=== PATIENT | female | born 1930 | race Two or more races ===

== ENCOUNTER 2017-09-28 14:03 | Inpatient (IN) | payer MEDICARE, OTHER ==
[~2017-09-28] VITALS: Ht 165.1 cm; Wt 77.1 kg
--- NOTE | 2017-09-28 14:10 | NUR ---
Bibra 37 c/o more altered than usual and generalized weakness. SEEN BY MD FOR EVAL. SAFETY AND COMFORT MEASURES PROVIDED. WILL MONITOR.
[2017-09-28] MEDS ORDERED: OLAN5TAB3 PO (14:20)
[2017-09-28] MEDS ORDERED: OLAN15TA3 PO (14:20)
[2017-09-28] MEDS ORDERED: FOLI1TAB16 PO (14:20)
[2017-09-28] MEDS ORDERED: ROSU20TA PO (14:20)
[2017-09-28] MEDS ORDERED: ASPI-1152 PO (14:20)
[2017-09-28] MEDS ORDERED: ATEN25TA PO (14:20)
[2017-09-28] MEDS ORDERED: OXCA150T PO (14:20)
[2017-09-28] MEDS ORDERED: [UNRECOGNIZED DRUG - CODE] PO (14:20)
[2017-09-28] MEDS ORDERED: MIRT15TA7 PO (14:20)
[2017-09-28] MEDS ORDERED: AMLO2.5T PO (14:20)
[2017-09-28] MEDS ORDERED: TEMA7.5C12 PO (14:20)
--- NOTE | 2017-09-28 14:49 | NUR ---
PATIENT ASSIGNED TO 316-1 DX MORE ALTERED THAN USUAL
[2017-09-28 14:57] LABS: BASOPHILS # (AUTO) 0.1 /CMM (0.0-0.2); BASOPHILS % (AUTO) 0.9 % (0.0-2.0); EOSINOPHILS % (AUTO) 2.7 % (0.0-6.0); HEMATOCRIT 39 % (33-45); HEMOGLOBIN 12.9 g/dL (11.5-14.8); LYMPHOCYTES # (AUTO) 1.8 /CMM (0.8-4.8); LYMPHOCYTES % (AUTO) 28.1 % (20.0-44.0); MEAN CORPUSCULAR HEMOGLOBIN 30 PG (26.0-33.0); MEAN CORPUSCULAR HGB CONC 33 g/dl (31.0-36.0); MEAN CORPUSCULAR VOLUME 92 fL (82-100); MONOCYTES # (AUTO) 0.7 /CMM (0.1-1.30); MONOCYTES % (AUTO) 11.4 % (2.0-12.0); NEUTROPHILS # (AUTO) 3.5 /CMM (1.8-8.9); NEUTROPHILS % (AUTO) 56.9 % (43.0-81.0); PLATELET COUNT (AUTO) 280 /CMM (150-450); RDW COEFFICIENT OF VARIATION 13.4 (11.5-15.0); RED BLOOD CELL COUNT(AUTO) 4.24 MIL/uL (4.0-5.2); WHITE BLOOD COUNT (AUTO) 6.3 K/uL (4.3-11.0)
[2017-09-28 15:05] LABS: CALCIUM, SERUM 9.2 mg/dL (8.5-10.1); CARBON DIOXIDE 27 mmol/L (21-32); CHLORIDE 107 mmol/L (98-107); CREATININE 0.8 mg/dL (0.6-1.3); GLUCOSE 145 mg/dL (74-106); POTASSIUM 4.1 mmol/L (3.5-5.1); SODIUM SERUM 145 mmol/L (136-145); UREA NITROGEN, BLOOD 37 mg/dL (7-18)
[2017-09-28 15:11] LABS: ALANINE AMINOTRANSFERASE 20 U/L (12-78); ALBUMIN 2.6 g/dL (3.4-5.0); ALKALINE PHOSPHATASE 102 U/L (46-116); ASPARTATE AMINOTRANSFERASE 17 U/L (15-37); BILIRUBIN,DIRECT 0.1 mg/dL (0.0-0.2); BILIRUBIN,TOTAL 0.5 mg/dL (0.2-1.0); TOTAL PROTEIN, SERUM 6.8 g/dL (6.4-8.2)
[2017-09-28] MEDS ORDERED: IV NS 0.9% 1,000 ML BAG IV STA (15:13)
[2017-09-28] MEDS ORDERED: CT SWABBABLE VALVE TRANS SET 1 EA INFUS.SET MC ONE (15:23)
[2017-09-28] MEDS ORDERED: IOHEXOL-300 100 ML VIAL IV ONE (15:23)
[2017-09-28 15:53] LABS: APPEARANCE,URINE Clear (CLEAR); BILIRUBIN,URINE SMALL (NEGATIVE); BLOOD, URINE Trace-lysed Ery/uL (NEGATIVE); COLOR,URINE Yellow (YELLOW); KETONES,URINE Trace (NEGATIVE); LEUKOCYTE ESTERASE ,URINE Moderate (NEGATIVE); NITRITE, URINE Negative (NEGATIVE); PH,URINE 5.5 (5.0-8.0); PROTEIN,URINE Trace mg/dl (NEGATIVE); UGLUCOSE Negative (NEGATIVE); UROBILINOGEN,URINE 0.2 EU/dL (0.2)
[2017-09-28 16:02] LABS: BACTERIA,URINE Few /HPF (None Seen); SQUAMOUS EPITHELIAL CELL,UR Moderate /HPF (None Seen); WBC,URINE 80-100 /HPF (0-3)
--- NOTE | 2017-09-28 16:39 | NUR ---
CALLED [facility] FOR PANEL CALL AND LAUREN JOE WAS PAGED
--- NOTE | 2017-09-28 17:13 | NUR ---
REPORT GIVEN TO INDRA CLAROS.
--- NOTE | 2017-09-28 18:00 | NUR ---
DISPATCHER ELECTRIC POWER NOTES RECEIVED PATIENT FROM ER PATIENT CONFUSED, ANXIOUS COMBATIVE NOTED HITTING KICKING. PATIENTS BODY ASSESSED SKIN INTACT. PATIENT ORIENTED TO ROOM. CALL LIGHT WITHIN TEACH. BED IN LOW LOCKED POSITION. PERIPHERAL IV INTACT PATENT. WILL CONTINUE TO MONITOR.
--- NOTE | 2017-09-28 19:30 | NUR ---
RN NOTES: -RECEIVED AWAKE ON BED, A/OX1, WITH PERIODS OF CONFUSION, ON CLOSE WTACH, HIGH RISK FOR FALL, FALL,SAFETY AND ASPIRATION PRECAUTION OBSERVED, TO BE TRANSFERRED ON EDJASCENT ROOM TO THE NURSES STATION, AWAITING FOR BED AVAILABILITY,AWAITING FOR ADMISSION ORDERS PER MORNING SHIFT RN ENDORSEMENT.RH G#20 INTACT.TRYING TO GET OUT FROM BED, TALKING INCOHERENT WORDS,ON CLOSE VISUAL CHECK.
[2017-09-28 20:00] VITALS: BP 137/66
--- NOTE | 2017-09-28 20:21 | NUR ---
RN NOTES; KEPT ON CLOSE WATCH, TALKING LOUDLY AND SHOUTING, KEPT ON CLOSE WATCH,DAUGHTER-MY CALLED OVER THE PHONE SHE WILL BE COMING TOMORROW,UTILITY WORKER PRODUCTION DOUGLAS CAME IN AND CHECK THE PATIENT THEN HE ALSO LEFT AND WILL RETURN BACK TOMORROW, PER DOUGLAS HER MENTATION IS MUCH BETTER NOW SHE IS MORE ALERT AND ABLE TO TALK, STILL WITH PERIODS OF CONFUSION, PER CAREGIVER SHE LOOKS DEHYDRATED BEFORE SHE CAME IN [facility] AND NOT TALKING AT ALL, AFTER HYDRATION IN ER SHE FEELS BETTER.
[2017-09-28] MEDS ORDERED: MAGNESIUM HYDROXIDE 30 ML UDC PO PRN (21:30)
[2017-09-28] MEDS: MEROPENEM 500 MG in IV NS 0.9% 50 ML IV SCH (21:30)
[2017-09-28] MEDS ORDERED: Z GUARD REMEDY 2 OZ OINT TP PRN (21:30)
[2017-09-28] MEDS ORDERED: MAG HYDROX/AL HYDROX/SIMETH 30 ML UDC PO PRN (21:30)
[2017-09-28] MEDS ORDERED: ONDANSETRON HCL/PF 4 MG/2 ML VIAL IVP PRN (21:30)
[2017-09-28] MEDS ORDERED: ACETAMINOPHEN 325 MG TABLET PO PRN (21:30)
[2017-09-28] MEDS ORDERED: BISACODYL SUPP (10 MG) 10 MG/SUPP.RECT SUPP.RECT RC PRN (22:00)
[2017-09-28] MEDS ORDERED: MINERAL OIL 133 ML (PYXIS) 1 EA ENEMA RC ONE (22:00)
[2017-09-28] MEDS ORDERED: DOCUSATE CALCIUM (240 MG) 240 MG CAPSULE PO SCH (22:00)
[2017-09-28] MEDS ORDERED: TEMAZEPAM 7.5 MG CAPSULE PO SCH (22:00)
--- NOTE | 2017-09-28 22:00 | NUR ---
RN NOTES: DOCUSATE CALCIUM NOT AVAILABLE, PATIENT HAD A MEDIUM AMOUNT OF BOWEL MOVEMENT AT AROUND 2230, CLEAN AND CHANGE.
--- NOTE | 2017-09-28 22:00 | NUR ---
RN NOTES: PATIENT WAS TRANSFERRED TO ADJACENT ROOM TO THE NURSES STATION IN [facility],-311-2.
--- NOTE | 2017-09-28 22:00 | NUR ---
RN NOTES: DR. AGUILAR CAME AND GIVEN INSTRUCTION TO RN TO DO BLADDER SCAN AND NOTIFY HIM,PATIENT IS FOR GI , CARDIO AND NEURO CONSULT.
--- NOTE | 2017-09-28 22:01 | NUR ---
RN NOTES: DR. AGUILAR ALSO ORDERED TO START O2 INHALATION AND CONTINUE TELE MONITOR RATE-79 [id number].
[2017-09-28] MEDS ORDERED: MEROPENEM 500 MG VIAL IV ONE (22:14)
--- NOTE | 2017-09-28 22:35 | NUR ---
RN NOTES: PATIENT HAD A MEDIUM BM, CLEAN AND CHANGE,BLADDER SCAN DONE RESULT 969, RELAYED TO DR. AGUILAR,WITH NEW ORDERS: FLEET ENEMA WAS ON HOLD,FOR SOTO CATH INSERTION.
--- NOTE | 2017-09-28 22:45 | NUR ---
RN NOTES: EXPLAINED TO PATIENT THAT WE NEED TO INSERT A SOTO CATHETER ON HER , SHE IS RETAINING URINE, BLADDER SCAN [id number], SHE AGREED, SOTO CATH F-16 INSERTED UNDER ASEPTIC TECHNIQUE, NO RESISTANCE, PATIENT WAS VERY COOPERATIVE, ABLE TO DRAIN BROWNISH/TEA COLORED URINE 700CC, SPECIMEN OBTAINED,WILL CONTINUE TO MONITOR AND KEEP ON CLOSE WATCH.FALL AND SAFETY PRECAUTION OBSERVED.
--- NOTE | 2017-09-28 22:50 | NUR ---
RN NOTES: DUE ORAL MEDICATION GIVEN,IVF OF NS AT 75 ML/HR IV CANNULA ON THE ON THE RIGHT HAND, IV/ANTIBIOTIC STARTED.
[2017-09-28] MEDS: MIRTAZAPINE 15 MG TABLET PO SCH (22:56)
[2017-09-28] MEDS: IV NS 0.9% 1,000 ML IV PRN (22:57)
--- NOTE | 2017-09-28 23:55 | NUR ---
RN NOTES: SOTO CATH DRAINING WELL,ASLEEP AT SHORT INTERVALS, KEPT ON CLOSE VISUAL CHECK, SIDE RAILS UP,MARY LIGHT WITHIN EASY REACH,BED LOW AND LOCKED.
[2017-09-29] VITALS (7 sets, daily range): BP systolic 110–157; BP diastolic 56–75
[2017-09-29] MEDS ORDERED: MEROPENEM 500 MG VIAL IV ONE (05:42)
[2017-09-29] MEDS: MEROPENEM 500 MG in IV NS 0.9% 50 ML IV SCH ×3 (05:44→21:00)
[2017-09-29 06:01] LABS: BASOPHILS % (AUTO) 0.3 % (0.0-2.0); EOSINOPHILS % (AUTO) 4.7 % (0.0-6.0); HEMATOCRIT 35 % (33-45); HEMOGLOBIN 11.8 g/dL (11.5-14.8); LYMPHOCYTES # (AUTO) 1.2 /CMM (0.8-4.8); MEAN CORPUSCULAR HEMOGLOBIN 32 PG (26.0-33.0); MEAN CORPUSCULAR HGB CONC 34 g/dl (31.0-36.0); MEAN CORPUSCULAR VOLUME 94 fL (82-100); MONOCYTES # (AUTO) 0.5 /CMM (0.1-1.30); MONOCYTES % (AUTO) 7.9 % (2.0-12.0); NEUTROPHILS # (AUTO) 4.5 /CMM (1.8-8.9); NEUTROPHILS % (AUTO) 68.1 % (43.0-81.0); PLATELET COUNT (AUTO) 210 /CMM (150-450); RDW COEFFICIENT OF VARIATION 13.9 (11.5-15.0); RED BLOOD CELL COUNT(AUTO) 3.75 MIL/uL (4.0-5.2); WHITE BLOOD COUNT (AUTO) 6.6 K/uL (4.3-11.0)
[2017-09-29 06:23] LABS: ALANINE AMINOTRANSFERASE 19 U/L (12-78); ALBUMIN 2.5 g/dL (3.4-5.0); ALKALINE PHOSPHATASE 92 U/L (46-116); ASPARTATE AMINOTRANSFERASE 17 U/L (15-37); BILIRUBIN,DIRECT 0.1 mg/dL (0.0-0.2); BILIRUBIN,TOTAL 0.5 mg/dL (0.2-1.0); CALCIUM, SERUM 8.3 mg/dL (8.5-10.1); CARBON DIOXIDE 25 mmol/L (21-32); CHLORIDE 110 mmol/L (98-107); CREATININE 0.6 mg/dL (0.6-1.3); GLUCOSE 115 mg/dL (74-106); MAGNESIUM 2.1 mg/dL (1.8-2.4); PHOSPHORUS 2.3 mg/dL (2.5-4.9); POTASSIUM 3.4 mmol/L (3.5-5.1); SODIUM SERUM 145 mmol/L (136-145); TOTAL PROTEIN, SERUM 6.2 g/dL (6.4-8.2); UREA NITROGEN, BLOOD 27 mg/dL (7-18)
[2017-09-29 06:37] LABS: CHOLESTEROL 100 mg/dL (<200); HDL CHOLESTEROL 34 mg/dL (40-60); LDL 53 mg/dL (0-99); THYROID STIMULATING HORMONE 0.834 uIU/mL (0.358-3.74); TRIGLYCERIDES 73 mg/dL (30-150)
--- NOTE | 2017-09-29 07:10 | NUR ---
RN NOTES PT IS LAYING DOWN IN BED, AWAKE AND RESTING COMFORTABLY. PT ON 2L O2, RESPIRATIONS ARE EVEN AND UNLABORED. IV ON R HAND INTACT AND RUNNING NS @ 75ML/HR. SOTO CATHETER IS IN PLACE AND DRAINING. SAFETY MEASURES ARE IN PLACE, CALL LIGHT IS IN REACH. WILL CONTINUE TO MONITOR.
--- NOTE | 2017-09-29 07:25 | NUR ---
RN NOTES: AWAKE, IVF ON GOING, ON TELE MONITOR RATE-76 SINUS RHYTHM,SOTO CATH DRAINING WELL,ENDORSED FOR CONTINUITY OF CARE AND TO F/U BLOOD RESULT.BED LOW AND LOCKED, CALL LIGHT WITHIN EASY REACH.
[2017-09-29] MEDS: HYDROCODONE/APAP 5/325MG 1 EACH TABLET PO PRN ×2 (07:31→14:40)
[2017-09-29] MEDS: FOLIC ACID 1 MG TABLET PO SCH (08:00)
[2017-09-29] MEDS: ASPIRIN EC 81 MG TABLET.DR PO SCH (08:00)
[2017-09-29] MEDS: OXCARBAZEPINE 150 MG TABLET PO SCH ×3 (08:01→17:45)
[2017-09-29] MEDS ORDERED: PANTOPRAZOLE 40 MG VIAL IV SCH (09:00)
[2017-09-29] MEDS: OLANZAPINE 5 MG TABLET PO SCH (09:23)
[2017-09-29] MEDS: ATENOLOL 25 MG TABLET PO SCH (09:23)
[2017-09-29] MEDS: AMLODIPINE BESYLATE 2.5 MG TABLET PO SCH (09:24)
[2017-09-29] MEDS: ENOXAPARIN SODIUM 40 MG/0.4 ML DISP.SYRIN SQ SCH (10:15)
[2017-09-29] MEDS ORDERED: POTASSIUM CHLORIDE 20 MEQ TAB.PRT.SR PO SCH ×2 (10:30→11:30)
--- NOTE | 2017-09-29 12:20 | NUR ---
RN NOTES PT PULLING AT CATHETER AND IV LINE. PT PULLED OFF OXYGEN MANY TIMES. PT REORIENTED AND TOLD THE IMPORTANCE OF NOT PULLING ON THE LINES. PT WAS GIVEN TOWELS TO PROVIDE DISTRACTIONS, BUT PT CONTINUED TO PULL OUT OF LINES AND ATTEMPTED TO MOVE HERSELF OUT OF THE BED. BEAM WARPER MADE AWARE, ACUTE MEDICAL RESTRAINTS ORDERED. WILL CONTINUE TO MONITOR WRIST RESTRAINTS Q15 MINUTES FOR ANY IRRITATION AND RELEASE RESTRAINTS Q2HRS PER PROTOCOL.
[2017-09-29] MEDS ORDERED: NEUTRA PHOS 1 POWD.PACKET PO ONE (15:30)
[2017-09-29] MEDS ORDERED: ATORVASTATIN 40 MG TABLET PO SCH (18:00)
--- NOTE | 2017-09-29 18:37 | NUR ---
RN NOTES PT IS SITTING UP IN BED, RESTING COMFORTABLY WITH HOB ELEVATED. PT ON 2L O2, RESPIRATIONS ARE EVEN AND UNLABORED. IV ON R HAND INTACT AND RUNNING NS @ 75ML/HR. SOTO CATHETER IS IN PLACE AND DRAINING TO GRAVITY. PT PROVIDED WITH SKIN CARE AND REPOSITIONED Q2HRS. SOFT WRIST RESTRAINTS ARE IN PLACE, NO SIGNS OF IRRITATION ON WRISTS NOTED. NO SIGNS OF DISTRESS NOTED, SAFETY MEASURES ARE IN PLACE, CALL LIGHT IS IN REACH. WILL ENDORSE TO MARINE STRUCTURAL DESIGNER RN FOR CONTINUITY OF CARE.
--- NOTE | 2017-09-29 20:00 | NUR ---
Received pt. in bed resting, sleeping, arousable by strong touch such as bedbathing and repositioning to the sides. Pt. sleeping,calm, with confusion and forgetfulness @ times when awake. Pt. @ 2L/NC continuous, lungs are diminished. Breathing regular, symmetrical and unlabored. None tele pt. Face and body relaxed, no s/s of agitation, no s/s of pain, pt. speaks Kittitian and oriented x 1 when awakens. Pt. with bilateral soft wrist restraints to prevent pt. pulling out tubes and lines. Bowel sounds present, abdomen soft, rounded and non-tender. Incontinent of both Bowel and bladder. F/C present for urinary retention. IVF of NS @ 75 ml./hr continuous to the PIV access @ the Right Hand G # 20. HOB up @ all times, turned and repositioned pt., released bilateral soft wrist restraints q 2 hrs. for 10 to 15 minutes and provided pt. passive ROM of both arms/hands. Pt. for swallow evaluation on Sunday next week. Assessment done and keep pt. safe, warm, clean and comfortable in bed.
[2017-09-29] MEDS ORDERED: OLANZAPINE 5 MG TABLET PO SCH (22:00)
[2017-09-29] MEDS: MIRTAZAPINE 15 MG TABLET PO SCH (22:17)
[2017-09-29] MEDS: DOCUSATE SODIUM 250 MG CAPSULE PO SCH (22:17)
[2017-09-29] MEDS: POLYETHYLENE GLYCOL 3350 17 GM POWD.PACK PO SCH (22:17)
[2017-09-30] MEDS: MEROPENEM 500 MG in IV NS 0.9% 50 ML IV SCH ×3 (05:49→21:08)
[2017-09-30] MEDS: IV NS 0.9% 1,000 ML IV PRN (05:50)
[2017-09-30 06:57] LABS: BASOPHILS % (AUTO) 0.3 % (0.0-2.0); HEMATOCRIT 33 % (33-45); HEMOGLOBIN 11.1 g/dL (11.5-14.8); LYMPHOCYTES # (AUTO) 0.8 /CMM (0.8-4.8); LYMPHOCYTES % (AUTO) 13.6 % (20.0-44.0); MEAN CORPUSCULAR HEMOGLOBIN 32 PG (26.0-33.0); MEAN CORPUSCULAR HGB CONC 33 g/dl (31.0-36.0); MEAN CORPUSCULAR VOLUME 95 fL (82-100); MONOCYTES # (AUTO) 0.5 /CMM (0.1-1.30); NEUTROPHILS # (AUTO) 4.3 /CMM (1.8-8.9); NEUTROPHILS % (AUTO) 75.1 % (43.0-81.0); PLATELET COUNT (AUTO) 231 /CMM (150-450); RDW COEFFICIENT OF VARIATION 14.1 (11.5-15.0); RED BLOOD CELL COUNT(AUTO) 3.51 MIL/uL (4.0-5.2); WHITE BLOOD COUNT (AUTO) 5.7 K/uL (4.3-11.0)
--- NOTE | 2017-09-30 07:05 | NUR ---
RN NOTES PT IS LAYING DOWN IN BED, SLEEPING COMFORTABLY. PT ON 2L O2, RESPIRATIONS ARE EVEN AND UNLABORED. IV ON R HAND INTACT AND RUNNING NS @ 75ML/HR. SOTO CATHETER IS IN PLACE AND DRAINING TO GRAVITY. SOFT WRIST RESTRAINTS ARE IN PLACE, NO SIGNS OF IRRITATION NOTED. NO SIGNS OF DISTRESS NOTED. SAFETY MEASURES ARE IN PLACE, CALL LIGHT IS IN REACH. WILL CONTINUE TO MONITOR.
[2017-09-30 07:14] LABS: ALANINE AMINOTRANSFERASE 14 U/L (12-78); ALBUMIN 2.2 g/dL (3.4-5.0); ALKALINE PHOSPHATASE 84 U/L (46-116); ASPARTATE AMINOTRANSFERASE 21 U/L (15-37); BILIRUBIN,TOTAL 0.4 mg/dL (0.2-1.0); CALCIUM, SERUM 8.1 mg/dL (8.5-10.1); CARBON DIOXIDE 27 mmol/L (21-32); CHLORIDE 111 mmol/L (98-107); CREATININE 0.5 mg/dL (0.6-1.3); GLUCOSE 117 mg/dL (74-106); MAGNESIUM 1.9 mg/dL (1.8-2.4); PHOSPHORUS 2.4 mg/dL (2.5-4.9); POTASSIUM 3.5 mmol/L (3.5-5.1); SODIUM SERUM 146 mmol/L (136-145); TOTAL PROTEIN, SERUM 5.6 g/dL (6.4-8.2); UREA NITROGEN, BLOOD 16 mg/dL (7-18)
[2017-09-30 08:00] VITALS: BP 139/61
[2017-09-30] MEDS: OXCARBAZEPINE 150 MG TABLET PO SCH ×3 (09:00→17:30)
[2017-09-30] MEDS: PANTOPRAZOLE 40 MG TABLET.DR PO SCH (09:00)
[2017-09-30] MEDS: OLANZAPINE 5 MG TABLET PO SCH (09:00)
[2017-09-30] MEDS: ASPIRIN EC 81 MG TABLET.DR PO SCH (09:00)
[2017-09-30] MEDS: FOLIC ACID 1 MG TABLET PO SCH (09:00)
[2017-09-30] MEDS: AMLODIPINE BESYLATE 2.5 MG TABLET PO SCH (09:00)
[2017-09-30] MEDS: ATENOLOL 25 MG TABLET PO SCH (09:00)
[2017-09-30] MEDS: POTASSIUM CHLORIDE 20 MEQ TAB.PRT.SR PO SCH ×4 (09:42→11:15)
[2017-09-30] MEDS: ENOXAPARIN SODIUM 40 MG/0.4 ML DISP.SYRIN SQ SCH (09:46)
[2017-09-30] MEDS ORDERED: MORPHINE SULFATE INJ 2 MG/ML DISP.SYRIN IV PRN (10:00)
[2017-09-30] MEDS: POTASSIUM CL. PREMIX PERIPHER. 50 ML IV SCH ×4 (11:38→15:49)
[2017-09-30] MEDS: NEUTRA PHOS 1 POWD.PACKET PO ONE ×2 (13:00→14:35)
[2017-09-30] MEDS ORDERED: risperiDONE-M 0.5 MG TAB.RAPDIS PO PRN (15:00)
[2017-09-30] MEDS ORDERED: HALOPERIDOL LACTATE INJ 5 MG/ML VIAL IM PRN (15:00)
[2017-09-30 16:00] VITALS: BP 148/77
[2017-09-30] MEDS ORDERED: NEUTRA PHOS 1 POWD.PACKET PO ONE (17:30)
[2017-09-30] MEDS: risperiDONE-M 0.5 MG TAB.RAPDIS PO SCH (17:30)
[2017-09-30] MEDS: BENZTROPINE MESYLATE (1 MG) 1 MG TABLET PO SCH (17:30)
[2017-09-30] MEDS: IV 1/2NS 1000 ML 1,000 ML IV PRN (18:17)
--- NOTE | 2017-09-30 18:37 | NUR ---
RN NOTES PT IS LAYING DOWN IN BED, AWAKE AND RESTING COMFORTABLY. PT ON 2L O2, RESPIRATIONS ARE EVEN AND UNLABORED. IV ON R HAND INTACT AND RUNNING 1/2 NS @ 75ML/HR. SOTO CATHETER IS IN PLACE AND DRAINING TO GRAVITY. PT PROVIDED WITH SKIN CARE AND REPOSITIONED Q2HRS. SOFT WRIST RESTRAINTS IN PLACE, NO IRRITATION NOTED. NO SIGNS OF DISTRESS NOTED. SAFETY MEASURES ARE IN PLACE, CALL LIGHT IS IN REACH. WILL ENDORSE TO ABRASIVE MIXER HELPER RN FOR CONTINUITY OF CARE.
--- NOTE | 2017-09-30 19:15 | NUR ---
MS RN NOTES Report received. Patient received in bed, resting comfortably, easily aroused. IV on right hand with 0.45% NS @75ml/hr noted. Not in any type of distress. No moaning or face grimacing noted. On antibiotic treatment. On soft wrist restraint per endorsement for interruption of care. Safety measures in place. will continue to monitor and assess patient
[2017-09-30 20:00] VITALS: BP 156/78
[2017-09-30] MEDS: POLYETHYLENE GLYCOL 3350 17 GM POWD.PACK PO SCH (21:07)
[2017-09-30] MEDS: DOCUSATE SODIUM 250 MG CAPSULE PO SCH (21:08)
--- NOTE | 2017-10-01 01:15 | NUR ---
MS RN NOTES Patient continue to try to grab IV line and try to reach for delgado cath. Reoriented patient. Will continue to monitor and assess patient
[2017-10-01] MEDS: MEROPENEM 500 MG in IV NS 0.9% 50 ML IV SCH ×3 (04:54→21:02)
--- NOTE | 2017-10-01 05:13 | NUR ---
MS RN NOTES Patient remained in bed, intermittently awake and speaking to self. Easily aroused. No moaning or facial grimacing noted. Not in any type of distress. Remained restrained with bilateral soft-wrist restraint for disrupting care by pulling IV lines, nasal cannula. Continue to reorient patient as often as possible. IV on right hand #20g: patent and intact with NS @75ml/hr running. Continue on antibiotic treatment, IVF and bowel regimen as planned. Continue on oxygen therapy. No SOB/labored breathing noted. Bed in lowest position with bed alarm on and call light within reach. Will continue to monitor and assess patient.
[2017-10-01] MEDS: IV 1/2NS 1000 ML 1,000 ML IV PRN (06:51)
--- NOTE | 2017-10-01 07:25 | NUR ---
MS RN CLOSING NOTES All needs provided and met. no changes noted or reported. Safety measures in place. Report endorsed to HARLAN Murcia.
[2017-10-01 08:00] VITALS: BP 149/61
--- NOTE | 2017-10-01 08:00 | NUR ---
MS RN NOTES PATIENT IN BED RESTING NO SOB OR ACUTE DISTRESS. PATIENT CONFUSED WITH BILATERAL SOFT WRIST RESTRAINS. PERIPHERAL IV INTACT PATENT. BED IN LOW LOCKED POSITION, CALL LIGHT WITHIN REACH. WILL CONTINUE TO MONITOR.
[2017-10-01] MEDS: AMLODIPINE BESYLATE 2.5 MG TABLET PO SCH (08:21)
[2017-10-01] MEDS: risperiDONE-M 0.5 MG TAB.RAPDIS PO SCH ×3 (08:21→17:16)
[2017-10-01] MEDS: FOLIC ACID 1 MG TABLET PO SCH (08:22)
[2017-10-01] MEDS: PANTOPRAZOLE 40 MG TABLET.DR PO SCH (08:22)
[2017-10-01] MEDS: BENZTROPINE MESYLATE (1 MG) 1 MG TABLET PO SCH ×3 (08:22→17:16)
[2017-10-01] MEDS: OXCARBAZEPINE 150 MG TABLET PO SCH ×3 (08:22→17:16)
[2017-10-01] MEDS: ASPIRIN EC 81 MG TABLET.DR PO SCH (08:22)
[2017-10-01] MEDS: ATENOLOL 25 MG TABLET PO SCH (08:22)
[2017-10-01] MEDS: Z GUARD REMEDY 2 OZ OINT TP SCH ×2 (08:24→21:02)
[2017-10-01 10:33] LABS: BASOPHILS % (AUTO) 0.3 % (0.0-2.0); EOSINOPHILS % (AUTO) 6.7 % (0.0-6.0); HEMATOCRIT 34 % (33-45); HEMOGLOBIN 11.4 g/dL (11.5-14.8); LYMPHOCYTES # (AUTO) 1.4 /CMM (0.8-4.8); LYMPHOCYTES % (AUTO) 21.7 % (20.0-44.0); MEAN CORPUSCULAR HEMOGLOBIN 32 PG (26.0-33.0); MEAN CORPUSCULAR HGB CONC 34 g/dl (31.0-36.0); MEAN CORPUSCULAR VOLUME 94 fL (82-100); MONOCYTES # (AUTO) 0.5 /CMM (0.1-1.30); MONOCYTES % (AUTO) 7.5 % (2.0-12.0); NEUTROPHILS # (AUTO) 4.1 /CMM (1.8-8.9); NEUTROPHILS % (AUTO) 63.8 % (43.0-81.0); PLATELET COUNT (AUTO) 208 /CMM (150-450); RDW COEFFICIENT OF VARIATION 13.4 (11.5-15.0); WHITE BLOOD COUNT (AUTO) 6.4 K/uL (4.3-11.0)
[2017-10-01 10:38] LABS: CALCIUM, SERUM 8.3 mg/dL (8.5-10.1); CARBON DIOXIDE 24 mmol/L (21-32); CHLORIDE 105 mmol/L (98-107); CREATININE 0.6 mg/dL (0.6-1.3); GLUCOSE 85 mg/dL (74-106); POTASSIUM 3.6 mmol/L (3.5-5.1); SODIUM SERUM 140 mmol/L (136-145); UREA NITROGEN, BLOOD 12 mg/dL (7-18)
[2017-10-01 10:43] LABS: ALANINE AMINOTRANSFERASE 16 U/L (12-78); ALBUMIN 2.2 g/dL (3.4-5.0); ALKALINE PHOSPHATASE 90 U/L (46-116); ASPARTATE AMINOTRANSFERASE 32 U/L (15-37); BILIRUBIN,TOTAL 0.6 mg/dL (0.2-1.0); MAGNESIUM 1.7 mg/dL (1.8-2.4); TOTAL PROTEIN, SERUM 5.7 g/dL (6.4-8.2)
[2017-10-01] MEDS: ENOXAPARIN SODIUM 40 MG/0.4 ML DISP.SYRIN SQ SCH (11:14)
[2017-10-01] MEDS ORDERED: K PHOS NEUTRAL 250 MG TABLET PO ONE (11:30)
[2017-10-01] MEDS ORDERED: Sodium Phosphate 7.5 MMOL in IV D5W 100 ML IV ONE (12:00)
[2017-10-01] MEDS: Magnesium 1GM/D5W 100ML PREMIX 100 ML IV SCH ×2 (12:17→15:07)
[2017-10-01 16:00] VITALS: BP 149/77
--- NOTE | 2017-10-01 18:21 | NUR ---
MS RN NOTES PATIENT IN BED RESTING NO SOB OR ACUTE DISTRESS NOTED. ALL DUE MEDICATIONS ADMINISTERED. ALL NEEDS MET WILL ENDORSE TO PM SHIFT CHERYL.
[2017-10-01 20:00] VITALS: BP 137/70
[2017-10-01 20:07] VITALS: BP 137/70
--- NOTE | 2017-10-01 20:29 | NUR ---
RECIVED ALERT TO NURSE AT HER BEDSIDE CONFUSUED OF THE SITUATION AROUND HER. SON DOUGLAS AT THE BEDSIDE AND FEEDING HER. WRIST RESTRAITS TAKEN OFF WHILE HE WAS AT HER BEDSIDE, NOTED SHE TAKES HER O2 OFF AND PULLS AT HER GOWN. O2 ON AT 2 LITERS
[2017-10-01] MEDS: POLYETHYLENE GLYCOL 3350 17 GM POWD.PACK PO SCH (21:02)
[2017-10-01] MEDS: DOCUSATE SODIUM 250 MG CAPSULE PO SCH (21:03)
[2017-10-02] MEDS: MEROPENEM 500 MG in IV NS 0.9% 50 ML IV SCH ×3 (04:54→21:13)
--- NOTE | 2017-10-02 05:31 | NUR ---
ENDING NOTES: NONVERBAL THROUG THE M=NIGHT. CAREGIVER DOUGLAS HER TO VISIT AT 7PM LAST NIGHT FEEDING HER AND GIVING HER DRINK. SCANT AMOUNT TAKEN. OFFERED FLUIDS THROU THE NIGHT AND SHE REFUSED, PURSING HER LIPS TOGETHER. BED ALARM ON THRU THE NIGHT SOTO CONTINOUS TO DRAIN DARK SHAHRIAR URINE. WRIST RESTRAINTS OFF WHEN DOUGLAS WAS IN THE ROOM OR NURSE IS IN THE ROOM, WHEN OFF SHE WILL ATTEMP TO GO AND TAKE OFF HER O2, ATTEMP TO THROW PILLOW ON THE GROUND, PULL AT SOTO CATH. SKIN IS CLEAN AND CLEAR INTACT.
[2017-10-02 06:28] LABS: BASOPHILS % (AUTO) 0.3 % (0.0-2.0); EOSINOPHILS % (AUTO) 7.2 % (0.0-6.0); HEMATOCRIT 34 % (33-45); HEMOGLOBIN 11.3 g/dL (11.5-14.8); LYMPHOCYTES % (AUTO) 18.6 % (20.0-44.0); MEAN CORPUSCULAR HEMOGLOBIN 31 PG (26.0-33.0); MEAN CORPUSCULAR HGB CONC 33 g/dl (31.0-36.0); MEAN CORPUSCULAR VOLUME 93 fL (82-100); MONOCYTES # (AUTO) 0.5 /CMM (0.1-1.30); MONOCYTES % (AUTO) 9.1 % (2.0-12.0); NEUTROPHILS # (AUTO) 3.5 /CMM (1.8-8.9); NEUTROPHILS % (AUTO) 64.8 % (43.0-81.0); PLATELET COUNT (AUTO) 224 /CMM (150-450); RDW COEFFICIENT OF VARIATION 13.8 (11.5-15.0); RED BLOOD CELL COUNT(AUTO) 3.62 MIL/uL (4.0-5.2); WHITE BLOOD COUNT (AUTO) 5.4 K/uL (4.3-11.0)
[2017-10-02] MEDS: IV 1/2NS 1000 ML 1,000 ML IV PRN ×2 (06:28→21:00)
[2017-10-02 06:37] LABS: ALANINE AMINOTRANSFERASE 18 U/L (12-78); ALKALINE PHOSPHATASE 86 U/L (46-116); ASPARTATE AMINOTRANSFERASE 19 U/L (15-37); BILIRUBIN,TOTAL 0.5 mg/dL (0.2-1.0); CALCIUM, SERUM 7.7 mg/dL (8.5-10.1); CARBON DIOXIDE 28 mmol/L (21-32); CHLORIDE 102 mmol/L (98-107); CREATININE 0.5 mg/dL (0.6-1.3); GLUCOSE 99 mg/dL (74-106); MAGNESIUM 1.9 mg/dL (1.8-2.4); PHOSPHORUS 2.2 mg/dL (2.5-4.9); POTASSIUM 3.2 mmol/L (3.5-5.1); SODIUM SERUM 139 mmol/L (136-145); TOTAL PROTEIN, SERUM 5.3 g/dL (6.4-8.2); UREA NITROGEN, BLOOD 6 mg/dL (7-18)
--- NOTE | 2017-10-02 07:40 | NUR ---
RN OPENING NOTES RECEIVED PT. IN BED A&OX1, PT. WAS REORIENTED. BREATHING UNLABORED, AND EVENLY ON ROOM AIR. NO S/S OF ACUTE DISTRESS. IV FLUIDS RUNNING AT 75 ML/HR. PT. HAS BILATERAL SOFT WRIST RESTRAINTS DUE TO PT. PULLING OUT LINES, SOTO CATHETER. SOTO CATHETER HAS 150 CC OF CLEAR AND YELLOW URINE. BED IS IN LOWEST, AND LOCKED POSITION. 2 SIDE RAILS UP, AND CALL LIGHT IS WITHIN REACH.
[2017-10-02 08:00] VITALS: BP 128/79
[2017-10-02] MEDS: risperiDONE-M 0.5 MG TAB.RAPDIS PO SCH ×4 (08:00→17:55)
[2017-10-02] MEDS: PANTOPRAZOLE 40 MG TABLET.DR PO SCH (09:00)
[2017-10-02] MEDS: BENZTROPINE MESYLATE (1 MG) 1 MG TABLET PO SCH ×3 (09:01→17:55)
--- NOTE | 2017-10-02 09:14 | NUR ---
PT. IS UNABLE TO TAKE RISPERIDONE, MEDICATION CANNOT BE CRUSHED OR CHEWED. PER ST PT. CAN HAVE PILLS CRUSHED. WILL NOTIFY PHARMACY.
[2017-10-02] MEDS ORDERED: risperiDONE-M PO ×2 (09:42)
[2017-10-02] MEDS ORDERED: BENZ1TAB7 PO (09:42)
[2017-10-02] MEDS ORDERED: HALO5VIA9 IM (09:42)
[2017-10-02] MEDS: ENOXAPARIN SODIUM 40 MG/0.4 ML DISP.SYRIN SQ SCH (10:58)
[2017-10-02] MEDS: FOLIC ACID 1 MG TABLET PO SCH (11:01)
[2017-10-02] MEDS: ASPIRIN EC 81 MG TABLET.DR PO SCH (11:01)
[2017-10-02] MEDS: OXCARBAZEPINE 150 MG TABLET PO SCH ×3 (11:02→17:34)
[2017-10-02] MEDS: Z GUARD REMEDY 2 OZ OINT TP SCH ×2 (11:02→21:13)
[2017-10-02] MEDS: AMLODIPINE BESYLATE 2.5 MG TABLET PO SCH (11:06)
[2017-10-02] MEDS: ATENOLOL 25 MG TABLET PO SCH (11:07)
[2017-10-02] MEDS ORDERED: POTASSIUM CHLORIDE 20 MEQ TAB.PRT.SR PO SCH (12:00)
[2017-10-02] MEDS ORDERED: NEUTRA PHOS 1 POWD.PACKET NG ONE (12:30)
--- NOTE | 2017-10-02 14:30 | NUR ---
WOUND CARE CONSULT: PATIENT SEEN AND SKIN INTEGRITY ASSESSMENT DONE. PLEASE SEE PHOTOVOLTAIC FABRICATION TECHNICIAN ASSESSMENT IN PCS. CONTINUE Z GUARD CURRENTLY ORDERED. PATIENT WITH MERT OF 13. ALL PRESSURE ULCER PREVENTION MEASURES NOTED TO BE IN PLACE PER PLAN OF CARE. WILL SEE PATIENT PRN. Addendum: 10/02/17 at 1433 by OPAL SILVA RN Amended: Links added.
[2017-10-02] MEDS: POTASSIUM CL. PREMIX PERIPHER. 50 ML IV SCH ×4 (14:44→17:36)
[2017-10-02 16:00] VITALS: BP 124/70
--- NOTE | 2017-10-02 19:00 | NUR ---
RN CLOSING NOTES PT. IS IN BED A&OX1,PT. IS CONFUSED. BREATHING UNLABORED, AND EVENLY ON ROOM AIR. NO S/S OF ACUTE DISTRESS. IV FLUIDS RUNNING AT 75 ML/HR. PT. HAS BILATERAL SOFT WRIST RESTRAINTS ON DUE TO PT. PULLING OUT LINES, AND SOTO CATHETER. BED IS IN LOWEST, AND LOCKED POSITION. 2 SIDE RAILS UP, AND CALL LIGHT IS WITHIN REACH. WILL ENDORSE REPORT TO NURSE.
--- NOTE | 2017-10-02 19:56 | NUR ---
RECIEVED ALERT TO NURSE AT BEDSIDE. LOOKS AT NURSE WHEN HER NAME IS SPOKEN. ORIENTATED TO SELF. IV SITE LEFT ARM PATENT RATE 75ML/HR. SOTO DRAINAGE CLEAR YELLOW BED ALARM ON NO WRIST RESTRAINTS. NOTED SHE TAKES HER O2 OFF ,REPLACED. SHE IS MUMBLING TO HERSELF.
[2017-10-02 20:00] VITALS: BP 128/74
[2017-10-02] MEDS: POLYETHYLENE GLYCOL 3350 17 GM POWD.PACK PO SCH (21:17)
[2017-10-02] MEDS: DOCUSATE SODIUM 250 MG CAPSULE PO SCH (21:17)
--- NOTE | 2017-10-03 04:17 | NUR ---
CLOSING NOTES: SLEPT BETWEEN CARE. WILL ASSIST NURSE WHEN BEING REPOSITION, SHE WILL GIGGLE AND TALK, BUT WHAT SHE IS SAYING IS DIFFICULT TO UNDERSTAND. NO ATTEMPT TO PULL AT CATHETER OR IV SITE WRIST RESTRAINTS NOT USED THIS 12 HOURS. ASP THIS 12 HOURS. PT NOT COOPERATIOVE IN DRINKING OR EATING WILL PUSH THE NURSES HAND AWAY OR TIGHENEN HER LIPS. AFEBRILE THIS 12 HOURS
[2017-10-03] MEDS: MEROPENEM 500 MG in IV NS 0.9% 50 ML IV SCH ×3 (05:03→21:48)
--- NOTE | 2017-10-03 07:33 | NUR ---
MS RN OPENING NOTE RECEIVED PATIENT IN BED. SLEEPING, AROUSED TO NAME. ORIENTED TO NAME ONLY. SPEECH IS UNCLEAR. PATIENT IS CONFUSED. ON 2L O2 VIA NC, TOLERATING WELL. IN NO APPARENT DISTRESS OR DISCOMFORT AT THIS TIME. RESPIRATIONS EVEN AND UNLABORED. PATIENT DEMONSTRATES CALM BEHAVIOR AT THIS TIME. PATIENT WITH SOTO CATHETER DRAINING CLEAR YELLOW URINE. IVC ON L HAND 20G WITH FLUIDS RUNNING AT 75 ML/HR. NO SIGN OF INFILTRATIONS NOTED. KEPT CLEAN AND COMFORTABLE. SAFETY MEASURES IN PLACE, BED IN LOW LOCKED POSITION, SIDE RAILS UP X2, CALL LIGHT WITHIN EASY REACH. WILL CONTINUE TO MONITOR.
[2017-10-03 08:00] VITALS: BP 122/57
[2017-10-03] MEDS: risperiDONE-M 0.5 MG TAB.RAPDIS PO SCH (08:40)
[2017-10-03] MEDS: FOLIC ACID 1 MG TABLET PO SCH (08:40)
[2017-10-03] MEDS: BENZTROPINE MESYLATE (1 MG) 1 MG TABLET PO SCH (08:40)
[2017-10-03] MEDS: ASPIRIN EC 81 MG TABLET.DR PO SCH (08:40)
[2017-10-03] MEDS: PANTOPRAZOLE 40 MG TABLET.DR PO SCH (08:40)
[2017-10-03] MEDS: OXCARBAZEPINE 150 MG TABLET PO SCH ×2 (08:41→12:47)
[2017-10-03] MEDS: AMLODIPINE BESYLATE 2.5 MG TABLET PO SCH (09:00)
[2017-10-03] MEDS: ATENOLOL 25 MG TABLET PO SCH (09:00)
[2017-10-03] MEDS: Z GUARD REMEDY 2 OZ OINT TP SCH ×2 (09:00→21:48)
[2017-10-03] MEDS: ENOXAPARIN SODIUM 40 MG/0.4 ML DISP.SYRIN SQ SCH (09:04)
[2017-10-03 09:24] LABS: BASOPHILS % (AUTO) 0.2 % (0.0-2.0); HEMATOCRIT 37 % (33-45); HEMOGLOBIN 12.2 g/dL (11.5-14.8); LYMPHOCYTES # (AUTO) 1.3 /CMM (0.8-4.8); LYMPHOCYTES % (AUTO) 19.4 % (20.0-44.0); MEAN CORPUSCULAR HEMOGLOBIN 31 PG (26.0-33.0); MEAN CORPUSCULAR HGB CONC 33 g/dl (31.0-36.0); MEAN CORPUSCULAR VOLUME 93 fL (82-100); MONOCYTES # (AUTO) 0.6 /CMM (0.1-1.30); MONOCYTES % (AUTO) 8.8 % (2.0-12.0); NEUTROPHILS # (AUTO) 4.3 /CMM (1.8-8.9); NEUTROPHILS % (AUTO) 66.6 % (43.0-81.0); PLATELET COUNT (AUTO) 235 /CMM (150-450); RDW COEFFICIENT OF VARIATION 13.7 (11.5-15.0); RED BLOOD CELL COUNT(AUTO) 3.93 MIL/uL (4.0-5.2); WHITE BLOOD COUNT (AUTO) 6.4 K/uL (4.3-11.0)
--- NOTE | 2017-10-03 09:50 | NUR ---
ONE OF THE BP MEDICATIONS, NORVASC, WAS HELD DUE TO PATIENT'S BP BEING 120/64, TO PREVENT TO MUCH DECREASE IN BP. BETA HANNAH WAS ADMINISTERED ONLY. WILL CONTINUE TO MONITOR.
--- NOTE | 2017-10-03 11:50 | NUR ---
SOTO CATHETER REMOVED PER MD ORDER. DIAPER IS NOW IN USE FOR ELIMINATION. WILL CONTINUE TO MONITOR FOR URINE OUTPUT.
[2017-10-03 16:00] VITALS: BP 147/76
[2017-10-03 16:03] LABS: APPEARANCE,URINE CLEAR (CLEAR); BILIRUBIN,URINE NEGATIVE (NEGATIVE); BLOOD, URINE 1+ Ery/uL (NEGATIVE); COLOR,URINE YELLOW (YELLOW); KETONES,URINE 1+ (NEGATIVE); LEUKOCYTE ESTERASE ,URINE NEGATIVE (NEGATIVE); NITRITE, URINE NEGATIVE (NEGATIVE); PH,URINE 6.5 (5.0-8.0); PROTEIN,URINE NEGATIVE (NEGATIVE); UGLUCOSE NEGATIVE (NEGATIVE)
[2017-10-03 16:18] LABS: BACTERIA,URINE None seen /HPF (None Seen); SQUAMOUS EPITHELIAL CELL,UR Few /HPF (None Seen); WBC,URINE 0-2 /HPF (0-3)
--- NOTE | 2017-10-03 19:10 | NUR ---
MS RN OPENING NOTE Patient was seen lying in semi-Aguilar's position, AAOx1. Patient was talkative with pleasant disposition but is confused. Patient is breathing on RA with no SOB and no signs of acute distress. 1/2NS is running through the left FA IV with no signs of leaking or infiltration. Bed is low/locked, two side rails up, bed alarm on, and call joel is within reach. Patient appears to be comfortable with no immediate needs at this time. Will continue to monitor.
--- NOTE | 2017-10-03 19:24 | NUR ---
MS RN CLOSING NOTE PATIENT IN BED. SLEEPING, AROUSED TO NAME. ORIENTED TO NAME ONLY. SPEECH IS UNCLEAR. PATIENT IS CONFUSED. ON ROOM AIR, TOLERATING WELL. IN NO APPARENT DISTRESS OR DISCOMFORT AT THIS TIME. RESPIRATIONS EVEN AND UNLABORED. PATIENT DEMONSTRATES CALM BEHAVIOR AT THIS TIME. PATIENT WITH DIAPER FOR ELIMINATION, SOTO REMOVED PER MD ORDER. IVC ON L FOREARM 22G WITH FLUIDS RUNNING AT 75 ML/HR. NO SIGN OF INFILTRATIONS NOTED. KEPT CLEAN AND COMFORTABLE. SAFETY MEASURES IN PLACE, BED IN LOW LOCKED POSITION, SIDE RAILS UP X3, CALL LIGHT WITHIN EASY REACH. WILL ENDORSE TO PM NURSE FOR CHERYL.
[2017-10-03 20:00] VITALS: BP 132/74
[2017-10-03] MEDS: POLYETHYLENE GLYCOL 3350 17 GM POWD.PACK PO SCH ×2 (22:00→22:20)
[2017-10-03] MEDS: DOCUSATE SODIUM 250 MG CAPSULE PO SCH ×2 (22:00→22:20)
--- NOTE | 2017-10-03 22:30 | NUR ---
MS RN NOTE - Non-Administered Meds: Colace, Miralax Colace and Miralax scheduled for 22:00 were non-administered due to patient unable to comprehend and patient too lethargic. Patient is Belgian-speaking only and has history of dementia, is confused and oriented only x1. Patient was sleeping upon entering the room and is lethargic; patient would wake to touch and say a few words but would not stay awake long enough to take medications despite showing the patient her medications and using gestures. Attempted to call the patient's daughter, Patricia at [phone], but did not get a response. Patient is otherwise in stable condition with vital signs in normal limits. Will continue to monitor.
[2017-10-04] MEDS: IV 1/2NS 1000 ML 1,000 ML IV PRN (02:10)
[2017-10-04] MEDS: MEROPENEM 500 MG in IV NS 0.9% 50 ML IV SCH ×2 (05:23→13:16)
[2017-10-04 06:41] LABS: CALCIUM, SERUM 8.3 mg/dL (8.5-10.1); CARBON DIOXIDE 26 mmol/L (21-32); CHLORIDE 104 mmol/L (98-107); CREATININE 0.5 mg/dL (0.6-1.3); GLUCOSE 101 mg/dL (74-106); POTASSIUM 3.6 mmol/L (3.5-5.1); SODIUM SERUM 135 mmol/L (136-145); UREA NITROGEN, BLOOD 12 mg/dL (7-18)
--- NOTE | 2017-10-04 07:40 | NUR ---
MS RN CLOSING NOTE Patient oriented x1, confused, and lethargic; awakes to name and light pressure. Patient is breathing on RA with no SOB and no signs of acute distress. Patient slept poorly overnight but had no complications and vitals remained WNL. 1/2 NS is running through the left FA with no signs of leaking or infiltration. Bed is low/locked, two side rails up, bed alarm on, and call joel within reach. Patient appears comfortable in bed with no immediate needs. Patient care endorsed to day shift RN.
--- NOTE | 2017-10-04 07:46 | NUR ---
MS RN OPENING NOTE RECEIVED PATIENT IN BED. SLEEPING, AROUSED TO NAME. ORIENTED TO NAME ONLY. SPEECH IS UNCLEAR. PATIENT IS CONFUSED. ON ROOM AIR, TOLERATING WELL. IN NO APPARENT DISTRESS OR DISCOMFORT AT THIS TIME. RESPIRATIONS EVEN AND UNLABORED. PATIENT DEMONSTRATES CALM BEHAVIOR AT THIS TIME. PATIENT WITH DIAPER FOR ELIMINATION, IVC ON L FOREARM 22G WITH FLUIDS RUNNING AT 75 ML/HR. NO SIGN OF INFILTRATIONS NOTED. KEPT CLEAN AND COMFORTABLE. SAFETY MEASURES IN PLACE, BED IN LOW LOCKED POSITION, SIDE RAILS UP X3, CALL LIGHT WITHIN EASY REACH. WILL CONTINUE TO MONITOR.
[2017-10-04 08:00] VITALS: BP 125/73
[2017-10-04] MEDS: AMLODIPINE BESYLATE 2.5 MG TABLET PO SCH (09:00)
[2017-10-04] MEDS: ASPIRIN EC 81 MG TABLET.DR PO SCH (09:37)
[2017-10-04] MEDS: FOLIC ACID 1 MG TABLET PO SCH (09:37)
[2017-10-04] MEDS: PANTOPRAZOLE 40 MG TABLET.DR PO SCH (09:37)
[2017-10-04] MEDS: ATENOLOL 25 MG TABLET PO SCH (09:38)
[2017-10-04] MEDS: ENOXAPARIN SODIUM 40 MG/0.4 ML DISP.SYRIN SQ SCH (09:39)
[2017-10-04] MEDS: Z GUARD REMEDY 2 OZ OINT TP SCH (09:39)
[2017-10-04 11:22] LABS: BASOPHILS % (AUTO) 0.3 % (0.0-2.0); EOSINOPHILS % (AUTO) 4.8 % (0.0-6.0); HEMATOCRIT 35 % (33-45); HEMOGLOBIN 11.7 g/dL (11.5-14.8); LYMPHOCYTES # (AUTO) 1.4 /CMM (0.8-4.8); LYMPHOCYTES % (AUTO) 19.4 % (20.0-44.0); MEAN CORPUSCULAR HEMOGLOBIN 31 PG (26.0-33.0); MEAN CORPUSCULAR HGB CONC 34 g/dl (31.0-36.0); MEAN CORPUSCULAR VOLUME 93 fL (82-100); MONOCYTES # (AUTO) 0.5 /CMM (0.1-1.30); MONOCYTES % (AUTO) 6.4 % (2.0-12.0); NEUTROPHILS # (AUTO) 4.9 /CMM (1.8-8.9); NEUTROPHILS % (AUTO) 69.1 % (43.0-81.0); PLATELET COUNT (AUTO) 222 /CMM (150-450); RDW COEFFICIENT OF VARIATION 13.4 (11.5-15.0); RED BLOOD CELL COUNT(AUTO) 3.75 MIL/uL (4.0-5.2); WHITE BLOOD COUNT (AUTO) 7.1 K/uL (4.3-11.0)
[2017-10-04] MEDS ORDERED: POLYVINYL ALCOHOL 15 ML BOTTLE EACHEYE PRN (12:00)
--- NOTE | 2017-10-04 15:00 | NUR ---
PATIENT WAS SEEN BY DR. HERNÁNDEZ FOR PSYCH EVALUATION. WAS PLACED ON 5150 HOLD. PATIENT WAS CLEARED BY MEDICAL DOCTOR AND WAS GIVEN ORDERS FOR DISCHARGE. WILL DISCHARGE AND TRANSFER THE PATIENT TO GEROPSYCH UNIT AT [facility]. FAMILY AWARE AND IN AGREEMENT OF TREATMENT PLAN.
[2017-10-04 16:00] VITALS: BP 122/80
--- NOTE | 2017-10-04 17:30 | NUR ---
MS INFORMATICA ARCHITECT NOTE DISCHARGE ORDER RECEIVED. PATIENT IS BEING DISCHARGED TO GEROPSYCH UNIT AT [facility] WITH 5150 HOLD UNDER THE CARE OF DR. HERNÁNDEZ. PATIENT IS STABLE, VITAL SIGNS ARE STABLE. RESPIRATIONS EVEN AND UNLABORED. IN NO APPARENT DISTRESS OR DISCOMFORT AT THIS TIME. ON ROOM AIR TOLERATING WELL. PATIENT IS ALERT BUT DISORIENTED. DISCHARGE PAPERWORK PREPARED VIA EXITCARE. PATIENT UNABLE TO SIGN, VERIFIED THE ORDER AND REVIEWED BELONGINGS LIST WITH ANOTHER RN. DISCHARGE INSTRUCTIONS AND PLAN OF CARE WAS DISCUSSED WITH DAUGHTER ELISEO EARLIER IN THE MORNING. WITH AGREEMENT WITH THE PLAN OF CARE. PATIENT HAS ADVANCED DIRECTIVE IN THE CHART. ALL PAPERWORK PRINTED AND COPIED. REPORT GIVEN TO ADILSON CLAROS AT [facility] PATIENT WAS DISCHARGED FROM [facility] FLOOR AND TRANSFERRED TO [facility] UNIT ROOM 218-B AT 1730.
[2017-10-05] MEDS ORDERED: ATEN25TA PO (03:48)
[2017-10-05] MEDS ORDERED: DOCU240C26 PO (03:48)
[2017-10-05] MEDS ORDERED: AMLO2.5T PO (03:48)
[2017-10-05] MEDS ORDERED: ROSU20TA31 PO (03:48)
[2017-10-05] MEDS ORDERED: FOLI1TAB16 PO (03:48)
[2017-10-05] MEDS ORDERED: ASPI-1152 PO (03:48)
[2017-10-05] MEDS ORDERED: OXCA300T PO (03:48)
== END 2017-10-04 18:00 | DRG 682 ==
LOC: ER 14:05 → TELE 15:04 → MED 09-29 10:50
PROVIDERS: ADMIT Hospitalist; ATTEND Hospitalist
DX: N17.0 Acute kidney failure with tubular necrosis (principal); G92 Toxic encephalopathy; N39.0 Urinary tract infection, site not specified; E44.0 Moderate protein-calorie malnutrition; F05 Delirium due to known physiological condition; F03.91 Unspecified dementia, unspecified severity, with behavioral disturbance; E86.0 Dehydration; I10 Essential (primary) hypertension; K57.30 Diverticulosis of large intestine without perforation or abscess without bleeding; Z79.82 Long term (current) use of aspirin; Z79.899 Other long term (current) drug therapy; Z95.1 Presence of aortocoronary bypass graft; M85.80 Other specified disorders of bone density and structure, unspecified site; Z90.49 Acquired absence of other specified parts of digestive tract; F32.9 Major depressive disorder, single episode, unspecified; N83.201 Unspecified ovarian cyst, right side; K56.41 Fecal impaction; R33.9 Retention of urine, unspecified; F01.50 Vascular dementia, unspecified severity, without behavioral disturbance, psychotic disturbance, mood disturbance, and anxiety; E78.5 Hyperlipidemia, unspecified; E27.9 Disorder of adrenal gland, unspecified; E83.39 Other disorders of phosphorus metabolism; E83.42 Hypomagnesemia; E83.51 Hypocalcemia; E87.6 Hypokalemia; K20.9 Esophagitis, unspecified
CPT/HCPCS: 36415; 70450-TC; 71045-TC; 72125-TC; 80048-TC; 80053-TC; 80061-TC; 80076-TC; 81000-TC; 82247-TC; 82248-TC; 83605-TC; 83735-TC; 84100-TC; 84443-TC; 84484-TC; 85025-TC; 87040-TC; 87081-TC; 87086-TC; 92611-TC; 93307-TC; 93880-TC; A4216; A4606; A9563; C9113; J1650; J2185; J3475; J3480; J3490; J7030; J7060; Q9967; Z7610

== ENCOUNTER 2017-10-04 16:05 | Inpatient (IN) | payer MEDICARE, OTHER ==
[~2017-10-04] VITALS: Ht 152.4 cm; Wt 59.0 kg
[~2017-10-04 16:05] MED LIST: AMLO2.5T PO; ASPI-1152 PO; ATEN25TA PO; BENZ1TAB7 PO; FOLI1TAB16 PO; HALO5VIA9 IM; OXCA150T PO; ROSU20TA PO; TEMA7.5C12 PO; [UNRECOGNIZED DRUG - CODE] PO; risperiDONE-M PO
[2017-10-04] MEDS ORDERED: MAG HYDROX/AL HYDROX/SIMETH 30 ML UDC PO PRN (18:00)
[2017-10-04] MEDS ORDERED: OLANZAPINE 5 MG/TAB.RAPDIS PO PRN (18:00)
[2017-10-04] MEDS ORDERED: MAGNESIUM HYDROXIDE 30 ML UDC PO PRN (18:00)
--- NOTE | 2017-10-04 18:58 | NUR ---
GPA/RN N-WARREN ADMITTED 87 YEARS OLD FEMALE PATIENT FROM [facility]. PATIENT ON 5150 FOR GRAVELY DISABLE ADULT. PATIENT IS UNDER THE CARE OF DR. HERNÁNDEZ ( PSYCHIATRIST), HE WAS MADE AWARE BY THE CHARGE NURSE WITH ORDERS.UPON FACE TO FACE ASSESSMENT, PATIENT IS RWANDAN SPEAKING ONLY ALERT ORIENTED TO NAME ONLY. PER REPORT PATIENT IS UNABLE TO WALK ALONE NEEDS ONE STAFF ASSIST. PER FAMILY MEDICATIONS NEEDS TO CRUSH PUT IN APPLE SAUCE . MRSA DONE AND SEND TO THE LAB. REFUSED FULL BODY ASSESSMENT AT THIS TIME. WILL ENDORSE TO THE INCOMING NURSE FOR THE ADMISSION PROCESS AND FOR THE CONTINUITY OF CARE. Addendum: 10/04/17 at 1917 by ADILSON HORVATH RN IN ADDITION TO MY ABOVE NOTES. PATIENT'S DAUGHTER ELISEO BANEGAS MADE AWARE OF THE ADMISSION .
[2017-10-04 20:00] VITALS: BP 148/96
[2017-10-04] MEDS: ZOLPIDEM TARTRATE 5 MG TABLET PO PRN (23:08)
[2017-10-05] MEDS ORDERED: ROSU20TA31 PO (03:48)
[2017-10-05] MEDS ORDERED: DOCU240C26 PO (03:48)
[2017-10-05] MEDS ORDERED: AMLO2.5T PO (03:48)
[2017-10-05] MEDS ORDERED: FOLI1TAB16 PO (03:48)
[2017-10-05] MEDS ORDERED: ATEN25TA PO (03:48)
[2017-10-05] MEDS ORDERED: OXCA300T PO (03:48)
[2017-10-05] MEDS ORDERED: ASPI-1152 PO (03:48)
[2017-10-05] MEDS: ACETAMINOPHEN 325 MG TABLET PO PRN (06:46)
[2017-10-05 08:00] VITALS: BP 133/76
[2017-10-05 08:12] LABS: ALANINE AMINOTRANSFERASE 22 U/L (12-78); ALBUMIN 2.3 g/dL (3.4-5.0); ALKALINE PHOSPHATASE 99 U/L (46-116); ASPARTATE AMINOTRANSFERASE 32 U/L (15-37); BILIRUBIN,TOTAL 0.5 mg/dL (0.2-1.0); CALCIUM, SERUM 8.5 mg/dL (8.5-10.1); CARBON DIOXIDE 26 mmol/L (21-32); CHLORIDE 104 mmol/L (98-107); CREATININE 0.5 mg/dL (0.6-1.3); GLUCOSE 122 mg/dL (74-106); POTASSIUM 3.7 mmol/L (3.5-5.1); SODIUM SERUM 138 mmol/L (136-145); TOTAL PROTEIN, SERUM 5.8 g/dL (6.4-8.2); UREA NITROGEN, BLOOD 12 mg/dL (7-18)
[2017-10-05] MEDS ORDERED: Z GUARD REMEDY 2 OZ OINT TP PRN (11:00)
--- NOTE | 2017-10-05 11:01 | NUR ---
Josemanuel Hoover notified to reconcile meds and said ok.
[2017-10-05 11:55] LABS: CHOLESTEROL 108 mg/dL (<200); HDL CHOLESTEROL 26 mg/dL (40-60); LDL 63 mg/dL (0-99); TRIGLYCERIDES 91 mg/dL (30-150)
[2017-10-05 16:00] VITALS: BP 126/71
--- NOTE | 2017-10-05 16:43 | NUR ---
Initial Discharge Note: Pt resides at [facility], an Assisted Living Facility, [address] [place] [address]. Contact telephone # found on face sheet is a wrong #. Please do not call, per request of current labeler of the #. KARELY contacted pts daughter, Patricia Schroeder at for discharge planning purposes. Pts daughter would like for her mother to return to the [facility] however is aware that she may need a higher level of care. Patricia agreed to continue discussing pts discharge plan with treatment team going forward. In addition, KARELY called [facility] to inquire about pts return. KARELY left a message asking for a call back. Karely will follow up to ensure pt is safely and adequately discharged.
[2017-10-05 20:17] VITALS: BP 129/89
[2017-10-05] MEDS: Z GUARD REMEDY 2 OZ OINT TP SCH (21:03)
[2017-10-05] MEDS: ATORVASTATIN 40 MG TABLET PO SCH (21:03)
[2017-10-05] MEDS: ZOLPIDEM TARTRATE 5 MG TABLET PO PRN (21:03)
[2017-10-06 08:00] VITALS: BP 149/71
[2017-10-06] MEDS: FOLIC ACID 1 MG TABLET PO SCH (08:34)
[2017-10-06] MEDS: ASPIRIN EC 81 MG TABLET.DR PO SCH (08:34)
[2017-10-06] MEDS: Z GUARD REMEDY 2 OZ OINT TP SCH ×2 (08:35→21:39)
[2017-10-06] MEDS: AMLODIPINE BESYLATE 2.5 MG TABLET PO SCH (08:35)
[2017-10-06] MEDS: ATENOLOL 25 MG TABLET PO SCH (08:35)
[2017-10-06] MEDS ORDERED: POLYETHYLENE GLYCOL 3350 17 GM POWD.PACK PO SCH (11:30)
[2017-10-06] MEDS: DOCUSATE SODIUM 100 MG CAPSULE PO SCH ×2 (12:04→16:52)
[2017-10-06 16:00] VITALS: BP 128/60
--- NOTE | 2017-10-06 19:00 | NUR ---
GPS RN OPENING NOTE Patient was seen lying in bed with no signs of acute distress and breathing on RA with no SOB. Patient is AAOx1; she is confused but is calm with a pleasant demeanor. A TICKET SALES AGENT is at the bedside as a 1:1 sitter. The patient has no immediate needs at the time. Will continue to monitor.
[2017-10-06 20:00] VITALS: BP 115/58
[2017-10-06] MEDS: ATORVASTATIN 40 MG TABLET PO SCH (21:39)
--- NOTE | 2017-10-06 22:00 | NUR ---
GPS RN NOTE - Meds PM medication (Lipitor) was provided to the patient crushed and mixed with applesauce + a little bit of honey, as directed per day shift nurse, and according to ordered diet (pureed). Much encouragement was needed in order to get the patient to take her medication. Patient ate approximately 50% of meds/applesauce and refused the rest, despite encouragement.
[2017-10-07 08:00] VITALS: BP 114/64
[2017-10-07] MEDS: FOLIC ACID 1 MG TABLET PO SCH (08:30)
[2017-10-07] MEDS: DOCUSATE SODIUM 100 MG CAPSULE PO SCH ×2 (08:30→16:32)
[2017-10-07] MEDS: ATENOLOL 25 MG TABLET PO SCH (08:30)
[2017-10-07] MEDS: AMLODIPINE BESYLATE 2.5 MG TABLET PO SCH (08:30)
[2017-10-07] MEDS: ASPIRIN EC 81 MG TABLET.DR PO SCH (08:30)
[2017-10-07] MEDS: Z GUARD REMEDY 2 OZ OINT TP SCH ×2 (08:41→21:36)
[2017-10-07 16:14] VITALS: BP 116/63
--- NOTE | 2017-10-07 19:30 | NUR ---
RN NOTES RECEIVED PATIENT IN BED AWAKE, AO X 1, VERBALLY RESPONSIVE. NO ACUTE DISTRESS NOTED. NO SIGNS OF PAIN NOTED. SAFETY REMINDERS GIVEN. SITTER AT BEDSIDE. ON LOW BED WITH BILATERAL UPPER SIDE RAILS UP. CALL AGUIAR WITHIN EASY REACH. WILL CONTINUE TO MONITOR.
[2017-10-07 20:00] VITALS: BP 108/55
[2017-10-07 20:08] VITALS: BP 108/55
[2017-10-07] MEDS: ATORVASTATIN 40 MG TABLET PO SCH (21:35)
--- NOTE | 2017-10-08 06:29 | NUR ---
RN NOTES PATIENT ASLEEP, EASILY AROUSABLE. RESPIRATIONS EVEN. NO SIGNS OF PAIN NOTED. DUE MEDS GIVEN WITH NO ASE NOTED. NEEDS ATTENDED. KEPT CLEAN, DRY, AND COMFORTABLE. SAFETY PRECAUTIONS AND COMFORT MEASURES IN PLACE. WILL GIVE REPORT TO DAY SHIFT FOR CONTINUITY OF CARE. SITTER AT BEDSIDE.
[2017-10-08 08:00] VITALS: BP 105/59
[2017-10-08] MEDS: FOLIC ACID 1 MG TABLET PO SCH (08:57)
[2017-10-08] MEDS: OLANZAPINE 2.5 MG TABLET PO PRN (08:57)
[2017-10-08] MEDS: ASPIRIN EC 81 MG TABLET.DR PO SCH (08:57)
[2017-10-08] MEDS: DOCUSATE SODIUM 100 MG CAPSULE PO SCH ×2 (08:57→16:48)
[2017-10-08] MEDS: AMLODIPINE BESYLATE 2.5 MG TABLET PO SCH (08:58)
[2017-10-08] MEDS: ATENOLOL 25 MG TABLET PO SCH (08:58)
[2017-10-08] MEDS: Z GUARD REMEDY 2 OZ OINT TP SCH ×2 (08:59→21:30)
--- NOTE | 2017-10-08 16:06 | NUR ---
SW met with the pt's daughter, Patricia ([phone]), and Robel ([phone]) from [facility] about the pts discharge plan. They are both aware that the psychiatrist will inform the SW when he feels the pt is ready to be discharged and then the SW will call Robel to arrange the transportation.
[2017-10-08 16:14] VITALS: BP 134/70
[2017-10-08] MEDS: ACETAMINOPHEN 325 MG TABLET PO PRN (17:39)
[2017-10-08 20:08] VITALS: BP 131/67
[2017-10-08] MEDS: ATORVASTATIN 40 MG TABLET PO SCH (21:30)
[2017-10-09 08:17] VITALS: BP 118/56
[2017-10-09] MEDS: DOCUSATE SODIUM 100 MG CAPSULE PO SCH ×2 (08:47→16:14)
[2017-10-09] MEDS: ASPIRIN EC 81 MG TABLET.DR PO SCH (08:47)
[2017-10-09] MEDS: FOLIC ACID 1 MG TABLET PO SCH (08:48)
[2017-10-09] MEDS: ATENOLOL 25 MG TABLET PO SCH (08:48)
[2017-10-09] MEDS: AMLODIPINE BESYLATE 2.5 MG TABLET PO SCH (08:48)
[2017-10-09] MEDS: OLANZAPINE 2.5 MG TABLET PO PRN (08:48)
[2017-10-09] MEDS: Z GUARD REMEDY 2 OZ OINT TP SCH ×2 (08:49→21:24)
--- NOTE | 2017-10-09 11:46 | NUR ---
VICENTE called the pt's daughter, Patricia ([phone]), and informed her that there is no discharge date for her mother yet.
[2017-10-09] MEDS: POLYETHYLENE GLYCOL 3350 17 GM POWD.PACK PO SCH (12:58)
[2017-10-09 16:16] VITALS: BP 139/95
[2017-10-09] MEDS ORDERED: BISACODYL SUPP (10 MG) 10 MG/SUPP.RECT SUPP.RECT RC PRN (16:30)
--- NOTE | 2017-10-09 18:54 | NUR ---
GPS/RN NEW ORDER PER DR COCHRAN FOR [facility] SUPPOSITORY PRN, DAILY FOR CONSTIPATION. [facility] SUPPOSITORY ADMINISTERED PER FAMILY REQUEST.
[2017-10-09 20:13] VITALS: BP 142/76
[2017-10-09] MEDS: ATORVASTATIN 40 MG TABLET PO SCH (21:24)
--- NOTE | 2017-10-10 01:30 | NUR ---
GPS-RN DULCOLAX SUPPOSITORY ADMINISTERED YESTERDAY, EFFECTIVE. PATIENT HAD BM IN LARGE AMOUNT WATERY WITH SOLID PIECES OF STOOL.
[2017-10-10 08:00] VITALS: BP 147/77
--- NOTE | 2017-10-10 08:40 | NUR ---
FAMILY IN TO VISIT.VS STABLE.
[2017-10-10] MEDS: DOCUSATE SODIUM 100 MG CAPSULE PO SCH ×2 (11:05→17:59)
[2017-10-10] MEDS: ASPIRIN EC 81 MG TABLET.DR PO SCH (11:08)
[2017-10-10] MEDS: AMLODIPINE BESYLATE 2.5 MG TABLET PO SCH (11:08)
[2017-10-10] MEDS: FOLIC ACID 1 MG TABLET PO SCH (11:08)
[2017-10-10] MEDS: ATENOLOL 25 MG TABLET PO SCH (11:09)
[2017-10-10] MEDS: Z GUARD REMEDY 2 OZ OINT TP SCH ×2 (11:49→21:50)
--- NOTE | 2017-10-10 14:34 | NUR ---
VICENTE called Robel ([phone]) from [facility] and informed him that the pt is being discharged tomorrow back to his facility. He stated that he would come pickle processor the pt around 11:30AM.
--- NOTE | 2017-10-10 14:34 | NUR ---
VICENTE called the pt's daughter, Patricia ([phone]), and informed her that the pt is being discharged tomorrow per Dr. Bermeo.
[2017-10-10 16:00] VITALS: BP 140/75
[2017-10-10 17:47] LABS: EOSINOPHILS % (AUTO) 2.7 % (0.0-6.0); HEMATOCRIT 36 % (33-45); HEMOGLOBIN 11.8 g/dL (11.5-14.8); LYMPHOCYTES # (AUTO) 2.8 /CMM (0.8-4.8); LYMPHOCYTES % (AUTO) 31.3 % (20.0-44.0); MEAN CORPUSCULAR HEMOGLOBIN 31 PG (26.0-33.0); MEAN CORPUSCULAR HGB CONC 33 g/dl (31.0-36.0); MEAN CORPUSCULAR VOLUME 93 fL (82-100); MONOCYTES % (AUTO) 0.5 % (2.0-12.0); NEUTROPHILS # (AUTO) 5.9 /CMM (1.8-8.9); NEUTROPHILS % (AUTO) 65.5 % (43.0-81.0); PLATELET COUNT (AUTO) 232 /CMM (150-450); RED BLOOD CELL COUNT(AUTO) 3.82 MIL/uL (4.0-5.2); WHITE BLOOD COUNT (AUTO) 8.9 K/uL (4.3-11.0)
[2017-10-10] MEDS: POLYETHYLENE GLYCOL 3350 17 GM POWD.PACK PO SCH (17:59)
--- NOTE | 2017-10-10 18:00 | NUR ---
HAD 2 SMALL BMS.HAS 1:1 SITTER.
[2017-10-10 18:06] LABS: ALANINE AMINOTRANSFERASE 19 U/L (12-78); ALBUMIN 2.6 g/dL (3.4-5.0); ALKALINE PHOSPHATASE 99 U/L (46-116); ASPARTATE AMINOTRANSFERASE 19 U/L (15-37); BILIRUBIN,TOTAL 0.6 mg/dL (0.2-1.0); CALCIUM, SERUM 8.7 mg/dL (8.5-10.1); CARBON DIOXIDE 28 mmol/L (21-32); CHLORIDE 106 mmol/L (98-107); CREATININE 0.7 mg/dL (0.6-1.3); GLUCOSE 158 mg/dL (74-106); SODIUM SERUM 141 mmol/L (136-145); TOTAL PROTEIN, SERUM 5.9 g/dL (6.4-8.2); UREA NITROGEN, BLOOD 17 mg/dL (7-18)
--- NOTE | 2017-10-10 19:30 | NUR ---
GPS RN NOTE, RECEIVED PATIENT AWAKE AND IN BED, NO S/S OR COMPLAINTS OF PAIN AT THIS TIME. PATIENT IS DISPLAYING NO S/S OF APPARENT DISTRESS AT THIS TIME. PATIENT BREATHING IS UNLABORED WITH EQUAL RISE AND FALL CHEST. PATIENT IS ALERT AND ORIENTED X 1 ON ROOM AIR WITH A SPO2 95% . PATIENT IS SUSPICIOUS, PARANOID, CONFUSED, DISORGANIZED, COOPERATIVE, ANXIOUS AT TIMES, AND NEEDS REDIRECTION. PATIENT DENIES SUICIDE IDEATIONS AND HOMICIDAL IDEATIONS AT THIS TIME. PATIENT EDUCATED ON THE USE OF THE CALL AGUIAR. PATIENT BED SIDE RAILS UP X 2 FOR SAFETY, BED IS LOCKED, LOW, AND I WILL CONTINUE TO MONITOR AND MAINTAIN SAFETY WITH THE HELP OF STAFF.
--- NOTE | 2017-10-10 20:30 | NUR ---
GPS RN NOTE, PATIENT TRANSFERRED TO ROOM 202 -1, REPORT GIVEN TO CONCHITA FOR CONTINUATION OF CARE. PATIENT LEFT WITH ALL BELONGINGS AND IN STABLE CONDITION.
[2017-10-10 21:00] VITALS: BP 111/63
[2017-10-10] MEDS: ATORVASTATIN 40 MG TABLET PO SCH (21:53)
--- NOTE | 2017-10-11 06:58 | NUR ---
GPS OVERFLOW RN NOTES AWAKE & RESPONSIVE. NOT IN ANY DISTRESS. NO SOB NOTED. DENIES ANY PAIN OR DISCOMFORT AT THIS TIME. CALM AND COOPERATIVE AT THIS TIME. AM CARE DONE. MONITORED ACCORDINGLY. WITH SITTER AT BEDSIDE. CALL LIGHT WITHIN REACH. BED IN LOWEST POSITION. SR UP X 3 WITH BED ALARM ON FOR SAFETY. WILL ENDORSE TO NEXT SHIFT.
--- NOTE | 2017-10-11 07:30 | NUR ---
GPS RN OPENING NOTES RECEIVED PATIENT IN STABLE CONDITION. IN NO APPARENT DISTRESS. BEDSIDE RAILS ARE UPX2. BED IS LOCKED AND LOWERED. CALL LIGHT IS WITHIN REACH. IV LINE IS INTACT AND PATENT. WILL CONTINUE TO MONITOR.
[2017-10-11 08:00] VITALS: BP 112/64
[2017-10-11] MEDS: DOCUSATE SODIUM 100 MG CAPSULE PO SCH (09:00)
[2017-10-11] MEDS: Z GUARD REMEDY 2 OZ OINT TP SCH (09:00)
--- NOTE | 2017-10-11 09:00 | NUR ---
CALLED PHARMACY FOR Z GUARD. PHARMACY WILL PROVIDE Addendum: 10/11/17 at 1057 by URIEL QUEZADA RN MEDICATION NOT AVAILABLE.
[2017-10-11 09:31] VITALS: BP 111/63
[2017-10-11] MEDS: AMLODIPINE BESYLATE 2.5 MG TABLET PO SCH (09:31)
[2017-10-11] MEDS: ATENOLOL 25 MG TABLET PO SCH (09:31)
[2017-10-11] MEDS: ASPIRIN EC 81 MG TABLET.DR PO SCH (09:31)
[2017-10-11] MEDS: FOLIC ACID 1 MG TABLET PO SCH (09:31)
[2017-10-11] MEDS: POLYETHYLENE GLYCOL 3350 17 GM POWD.PACK PO SCH (09:37)
--- NOTE | 2017-10-11 10:33 | NUR ---
DR. HERNÁNDEZ GAVE AN ORDER TO D/C HOLD AND D/C TO [facility]. TO FOLLOW UP WITH PSYCH AND MEDICAL DOCTORS.
--- NOTE | 2017-10-11 13:55 | NUR ---
Discharge Note: Pt was discharged to [facility] ([facility] located at [address] [place] [address]; ([phone]). Pt was picked up by [facility] around 2:00PM that was $65. The head of the assisted living is Robel ([phone]) and he was called about this discharge and about the transportation. Pts daughter, Patricia ([phone]) has agreed to this discharge but is away on vacation and cannot be reached today. Robel from the Assisted Living wanted [facility] ([phone]) to be called with the pts medications before she discharged which the nurses completed. Upon discharge, the pt appeared to be in a euthymic mood but appeared to be somewhat distressed and anxious about the discharge since her daughter was not around. The pt also denied both suicidal and homicidal ideation as well as auditory and visual hallucinations. Pt will be under the care of her psychiatrist, Dr. Kinga Woods, located at [address] [place] [address]; and her phlebotomist medical lab assistant, Dr. Jodi Baker, located at [address], [place] [address]; .
--- NOTE | 2017-10-11 14:30 | NUR ---
[facility] RN CLOSING NOTES PATIENT DISCHARGED IN STABLE CONDITION. IN NO APPARENT DISTRESS. ALL NEEDS WERE MET. PATIENT DID NOT HAVE IV LINE. ID BAND WAS REMOVED. EXITCARE WAS PROVIDED TO PATIENT. PATIENT WAS PICKED UP VIA WHEELCHAIR AND WILL BE TAKEN TO [facility]. Addendum: 10/11/17 at 1445 by URIEL QUEZADA RN PATIENT DENIES SUICIDAL IDEATION AND HOMICIDAL IDEATION.
== END 2017-10-11 14:30 | DRG 885 ==
LOC: GPS 16:05 → GPSOV2 10-10 20:13
PROVIDERS: ADMIT Psychiatry & Neurology Psychiatry; ATTEND Psychiatry & Neurology Psychiatry
DX: F39 Unspecified mood [affective] disorder (principal); F05 Delirium due to known physiological condition; F29 Unspecified psychosis not due to a substance or known physiological condition; F41.9 Anxiety disorder, unspecified; Z73.6 Limitation of activities due to disability; R33.9 Retention of urine, unspecified; F03.90 Unspecified dementia, unspecified severity, without behavioral disturbance, psychotic disturbance, mood disturbance, and anxiety; K59.00 Constipation, unspecified; I25.10 Atherosclerotic heart disease of native coronary artery without angina pectoris; I25.2 Old myocardial infarction; E78.5 Hyperlipidemia, unspecified; E86.0 Dehydration; I10 Essential (primary) hypertension
CPT/HCPCS: 36415; 80053-TC; 80061-TC; 85025-TC; 87081-TC; 97110-TC; 97116-TC; 97530-TC; Z7610

== ENCOUNTER 2018-02-22 09:51 | Outpatient (CLI) | payer MEDICARE, OTHER ==
[~2018-02-22 09:51] MED LIST changes: -AMLO2.5T PO; +AMLO2.5T4 PO; +DOCU240C26 PO; -OXCA150T PO; +OXCA300T15 PO; -ROSU20TA PO; +ROSU20TA31 PO; -TEMA7.5C12 PO; -[UNRECOGNIZED DRUG - CODE] PO
== END 2018-02-22 23:59 | disposition home or self-care (01) ==
LOC: WOU 09:51
PROVIDERS: ATTEND Podiatrist Foot & Ankle Surgery
DX: L89.623 Pressure ulcer of left heel, stage 3 (principal); L90.9 Atrophic disorder of skin, unspecified; I10 Essential (primary) hypertension; E78.5 Hyperlipidemia, unspecified; Z79.82 Long term (current) use of aspirin; Z79.899 Other long term (current) drug therapy
CPT/HCPCS: 11042; 11045

== ENCOUNTER 2018-02-27 10:15 | Outpatient (CLI) | payer MEDICARE, OTHER | END 2018-02-27 23:59 | disposition home or self-care (01) | LOC: WOU 10:15 | PROVIDERS: ATTEND Specialist | DX: L89.623 Pressure ulcer of left heel, stage 3 (principal); L89.150 Pressure ulcer of sacral region, unstageable; I10 Essential (primary) hypertension; E78.5 Hyperlipidemia, unspecified; Z79.82 Long term (current) use of aspirin; Z79.899 Other long term (current) drug therapy | CPT/HCPCS: 97597; 97598; A6402; Z7610; 11042; 11045 ==

== ENCOUNTER 2018-03-06 10:22 | Outpatient (CLI) | payer MEDICARE, OTHER | END 2018-03-06 23:59 | disposition home or self-care (01) | LOC: WOU 10:22 | PROVIDERS: ATTEND Specialist | DX: L89.620 Pressure ulcer of left heel, unstageable (principal); L89.150 Pressure ulcer of sacral region, unstageable; I10 Essential (primary) hypertension; E78.5 Hyperlipidemia, unspecified; Z79.82 Long term (current) use of aspirin; Z79.899 Other long term (current) drug therapy | CPT/HCPCS: A6402; G0463 ==

== ENCOUNTER 2018-03-13 10:20 | Outpatient (CLI) | payer MEDICARE, OTHER | END 2018-03-13 23:59 | disposition home health service (06) | LOC: WOU 10:20 | PROVIDERS: ATTEND Specialist | DX: L89.623 Pressure ulcer of left heel, stage 3 (principal); L89.150 Pressure ulcer of sacral region, unstageable; I10 Essential (primary) hypertension; E78.5 Hyperlipidemia, unspecified | CPT/HCPCS: 11042; A6402; Z7610 ==

== ENCOUNTER 2018-03-20 10:06 | Outpatient (CLI) | payer MEDICARE, OTHER | END 2018-03-20 23:59 | disposition home health service (06) | LOC: WOU 10:06 | PROVIDERS: ATTEND Specialist | DX: L89.623 Pressure ulcer of left heel, stage 3 (principal); L89.154 Pressure ulcer of sacral region, stage 4; I10 Essential (primary) hypertension; E78.5 Hyperlipidemia, unspecified; Z79.82 Long term (current) use of aspirin; Z79.899 Other long term (current) drug therapy | CPT/HCPCS: 11042; 11043; 87070; 87077; A6209; A6402; Z7610 ==

== ENCOUNTER 2018-03-27 10:05 | Outpatient (CLI) | payer MEDICARE, OTHER | END 2018-03-27 23:59 | disposition home health service (06) | LOC: WOU 10:05 | PROVIDERS: ATTEND Specialist | DX: L89.623 Pressure ulcer of left heel, stage 3 (principal); L89.153 Pressure ulcer of sacral region, stage 3; I10 Essential (primary) hypertension; E78.5 Hyperlipidemia, unspecified; B95.62 Methicillin resistant Staphylococcus aureus infection as the cause of diseases classified elsewhere; Z79.82 Long term (current) use of aspirin; Z79.899 Other long term (current) drug therapy | CPT/HCPCS: 11042; 87070-TC; 87186-TC; A6209; A6402 ==

== ENCOUNTER 2018-04-03 10:05 | Outpatient (CLI) | payer MEDICARE, OTHER | END 2018-04-03 23:59 | disposition home or self-care (01) | LOC: WOU 10:05 | PROVIDERS: ATTEND Specialist | DX: L89.623 Pressure ulcer of left heel, stage 3 (principal); L89.153 Pressure ulcer of sacral region, stage 3; I10 Essential (primary) hypertension; E78.5 Hyperlipidemia, unspecified | CPT/HCPCS: 11042; A6210; A6402; Z7610 ==

== ENCOUNTER 2018-04-10 10:10 | Outpatient (CLI) | payer MEDICARE, MEDICAID | END 2018-04-10 23:59 | disposition home health service (06) | LOC: WOU 10:10 | PROVIDERS: ATTEND Specialist | DX: L89.623 Pressure ulcer of left heel, stage 3 (principal); L89.154 Pressure ulcer of sacral region, stage 4; I10 Essential (primary) hypertension; Z86.14 Personal history of Methicillin resistant Staphylococcus aureus infection; E78.5 Hyperlipidemia, unspecified; Z79.82 Long term (current) use of aspirin; Z79.899 Other long term (current) drug therapy | CPT/HCPCS: 11042; 87070-TC; 87075-TC; 87186-TC; A6210; A6402 ==

== ENCOUNTER 2018-04-17 10:10 | Outpatient (CLI) | payer MEDICARE, MEDICAID | END 2018-04-17 23:59 | disposition home health service (06) | LOC: WOU 10:10 | PROVIDERS: ATTEND Specialist | DX: L89.154 Pressure ulcer of sacral region, stage 4 (principal); L89.623 Pressure ulcer of left heel, stage 3; I10 Essential (primary) hypertension; E78.5 Hyperlipidemia, unspecified; Z86.14 Personal history of Methicillin resistant Staphylococcus aureus infection | CPT/HCPCS: A6210; A6402; G0463 ==

== ENCOUNTER 2018-04-24 10:05 | Outpatient (CLI) | payer MEDICARE, MEDICAID | END 2018-04-24 23:59 | disposition home health service (06) | LOC: WOU 10:05 | PROVIDERS: ATTEND Specialist | DX: L89.154 Pressure ulcer of sacral region, stage 4 (principal); L89.623 Pressure ulcer of left heel, stage 3; I10 Essential (primary) hypertension; Z86.14 Personal history of Methicillin resistant Staphylococcus aureus infection; E78.5 Hyperlipidemia, unspecified; Z79.82 Long term (current) use of aspirin; Z79.899 Other long term (current) drug therapy | CPT/HCPCS: A6210; A6402; G0463 ==

== ENCOUNTER 2018-05-01 10:05 | Outpatient (CLI) | payer MEDICARE, MEDICAID | END 2018-05-01 23:59 | disposition home health service (06) | LOC: WOU 10:05 | PROVIDERS: ATTEND Specialist | DX: L89.154 Pressure ulcer of sacral region, stage 4 (principal); L89.623 Pressure ulcer of left heel, stage 3; I10 Essential (primary) hypertension; E78.5 Hyperlipidemia, unspecified; Z79.82 Long term (current) use of aspirin; Z79.899 Other long term (current) drug therapy | CPT/HCPCS: 87070; 87075; A6210; A6402; G0463; 87186-TC ==

== ENCOUNTER 2018-05-08 10:05 | Outpatient (CLI) | payer MEDICARE, MEDICAID | END 2018-05-08 23:59 | disposition home health service (06) | LOC: WOU 10:05 | PROVIDERS: ATTEND Specialist | DX: L89.154 Pressure ulcer of sacral region, stage 4 (principal); I10 Essential (primary) hypertension; L89.623 Pressure ulcer of left heel, stage 3; E78.5 Hyperlipidemia, unspecified; Z86.14 Personal history of Methicillin resistant Staphylococcus aureus infection; Z79.82 Long term (current) use of aspirin | CPT/HCPCS: A6210; A6402; G0463 ==

== ENCOUNTER 2018-05-15 10:00 | Outpatient (CLI) | payer MEDICARE, MEDICAID | END 2018-05-15 23:59 | disposition home health service (06) | LOC: WOU 10:00 | PROVIDERS: ATTEND Specialist | DX: L89.154 Pressure ulcer of sacral region, stage 4 (principal); I10 Essential (primary) hypertension; L89.620 Pressure ulcer of left heel, unstageable; E78.5 Hyperlipidemia, unspecified; Z79.899 Other long term (current) drug therapy | CPT/HCPCS: 11042; A6402 ==

== ENCOUNTER 2018-05-22 10:00 | Outpatient (CLI) | payer MEDICARE, MEDICAID | END 2018-05-22 23:59 | disposition home health service (06) | LOC: WOU 10:00 | PROVIDERS: ATTEND Specialist | DX: L89.154 Pressure ulcer of sacral region, stage 4 (principal); L89.620 Pressure ulcer of left heel, unstageable; F01.50 Vascular dementia, unspecified severity, without behavioral disturbance, psychotic disturbance, mood disturbance, and anxiety; I10 Essential (primary) hypertension; E78.5 Hyperlipidemia, unspecified | CPT/HCPCS: 11043; 87070; A6402; 87186-TC ==

== ENCOUNTER 2018-05-29 10:15 | Outpatient (CLI) | payer MEDICARE, MEDICAID | END 2018-05-29 23:59 | disposition home health service (06) | LOC: WOU 10:15 | PROVIDERS: ATTEND Specialist | DX: L89.154 Pressure ulcer of sacral region, stage 4 (principal); L89.629 Pressure ulcer of left heel, unspecified stage; I10 Essential (primary) hypertension; F01.50 Vascular dementia, unspecified severity, without behavioral disturbance, psychotic disturbance, mood disturbance, and anxiety; E78.5 Hyperlipidemia, unspecified; Z86.14 Personal history of Methicillin resistant Staphylococcus aureus infection; Z79.82 Long term (current) use of aspirin; Z79.899 Other long term (current) drug therapy | CPT/HCPCS: 11042; 97605; A6402 ==

== ENCOUNTER 2018-06-05 10:15 | Outpatient (CLI) | payer MEDICARE, MEDICAID | END 2018-06-05 23:59 | disposition home health service (06) | LOC: WOU 10:15 | PROVIDERS: ATTEND Specialist | DX: L89.154 Pressure ulcer of sacral region, stage 4 (principal); L89.600 Pressure ulcer of unspecified heel, unstageable; I10 Essential (primary) hypertension; E78.5 Hyperlipidemia, unspecified; Z79.899 Other long term (current) drug therapy | CPT/HCPCS: 11042; A6402 ==

== ENCOUNTER 2018-06-12 10:05 | Outpatient (CLI) | payer MEDICARE, MEDICAID | END 2018-06-12 23:59 | disposition home health service (06) | LOC: WOU 10:05 | PROVIDERS: ATTEND Specialist | DX: L89.154 Pressure ulcer of sacral region, stage 4 (principal); I10 Essential (primary) hypertension; F01.50 Vascular dementia, unspecified severity, without behavioral disturbance, psychotic disturbance, mood disturbance, and anxiety; E78.5 Hyperlipidemia, unspecified | CPT/HCPCS: 11042; 97605-TC ==